=== PATIENT | female | born 1970 | race Caucasian/White ===

== ENCOUNTER 2022-05-21 09:22 | Day surgery (SDC) | payer BC, OTHER ==
--- NOTE | 2022-05-21 07:41 | HP ---
DATE OF SURGERY: 05/21/2022 HISTORY OF PRESENT ILLNESS: The patient is a 52-year-old with no prior colonoscopy, no bloody stools, and no change in bowel habits. Family history negative for colon cancer. She is in need of screening colonoscopy. PAST MEDICAL HISTORY: Hypertension. PAST SURGICAL HISTORY: Ankle surgery. MEDICATIONS: Lisinopril. ALLERGIES: NKDA. FAMILY HISTORY: Negative for colon cancer. SOCIAL HISTORY: No smoking. REVIEW OF SYSTEMS: Fourteen systems reviewed. No chest pain or palpitations. Other systems negative or noncontributory as above and per preadmission questionnaire. PHYSICAL EXAMINATION: Weight 220 pounds. BMI 36. GENERAL: No acute distress. HEENT: Sclerae nonicteric. NECK: No JVD. CHEST: Equal excursion, nonlabored breathing. CVS: Regular rate and rhythm. ABDOMEN: Soft. No peritoneal signs. EXTREMITIES: No significant edema. NEURO: Alert, oriented, moving extremities symmetrically. RECTAL: Deferred timed to endoscopy exam. PSYCH: Appropriate mood and affect. IMPRESSION: Need for screening colonoscopy. I feel the patient is a candidate. She was shown the risk sheet explained the procedure in detail including but not limited to bleeding or infection, risk of bowel injury or perforation possibly requiring further procedure, risk of missed or nondiagnosis or incomplete exam possibly requiring barium enema, other studies or procedures, general risk of anesthesia or sedation, risk of bowel prep but not limited to, consent obtained. Will proceed with outpatient screening colonoscopy under MAC anesthesia.
[2022-05-21] MEDS ORDERED: Lactated Ringers 1,000 ML IV SCH (09:30)
[2022-05-21] MEDS ORDERED: Lactated Ringers 1,000 ML IV ONE (09:46)
[2022-05-21] MEDS ORDERED: Versed 2 MG/2 ML Injection ONE (11:59)
[2022-05-21] MEDS ORDERED: DIPRIVAN 200 MG/20 ML IV ONE ×2 (11:59→12:11)
[2022-05-21] MEDS ORDERED: Xylocaine-Mpf 2% 5 Ml Vial ONE (12:02)
[2022-05-21 13:08] VITALS: O2SAT 97
[2022-05-21 13:20] VITALS: BP 161/93; PULSE 91
--- NOTE | 2022-05-21 14:11 | OP ---
SURGERY DATE/TIME: 05/21/2022 1159 PREOPERATIVE DIAGNOSIS: Need for screening colonoscopy. POSTOPERATIVE DIAGNOSES: Fairly normal colon exam, fair bowel prep. PROCEDURES: Colonoscopy to cecum. SURGEON: Dr. Vel Espino. ZOOKEEPER: Fabiola Hartman, Medical Student III. ANESTHESIA: MAC. ESTIMATED BLOOD LOSS: Minimal. INDICATIONS: As noted above. Risks and benefits explained in detail but not limited to and consent obtained. DESCRIPTION OF PROCEDURE AND FINDINGS: The patient is taken to the endoscopy room. MAC anesthesia induced. After official time out and no disagreement with planned procedure, digital rectal exam did not reveal any rectal masses. Video colonoscope inserted and passed up through the slightly tortuous sigmoid, descending, transverse and ascending colon around to the cecum. Appendiceal orifice and valve well visualized and photo documented. The scope was then carefully withdrawn over the next nine minutes. ASA Class II. Prep overall was fair with a little bit of liquidy semisolid stool suctioned irrigated out as clear as possible but slightly limited the exam for very tiny lesions. Otherwise this was suctioned irrigated as clear as possible. No signs of any large polyps, masses or any other obstructing lesions. No signs of any obvious polyps. No signs of any large pits. The scope is withdrawn over the next nine minutes. It was a fairly normal exam. I recommend follow up colonoscopy no later than ten years. If her prep was fine we could consider colonoscopy in five years. I will leave that up to her primary care provider.
== END 2022-05-21 13:25 | disposition home or self-care (01) ==
LOC: SDC 09:22
PROVIDERS: ATTEND Surgery
DX: Z12.11 Encounter for screening for malignant neoplasm of colon (principal)
CPT/HCPCS: 81025; J2250; J2704